=== PATIENT | female | born 1940 | race Caucasian/White ===

== ENCOUNTER → 2016-08-28 | Outpatient (CLI) | payer OTHER ==
--- NOTE | 2016-08-28 12:50 | MR ---
MRI of the Lumbar Spine (Without Contrast) Indication: Back pain. Age-indeterminate L1 compression fracture. Technique: Sagittal and axial T1 and T2 , and sagittal STIR MR sequences of the lumbar spine witho ut contrast. Comparison: Lumbar spine radiographs, August 25, 2016, and CT of the abdomen, October 17, 2013. Findings: A moderate (40% height loss) acute/subacute L1 compression fracture has hyperintense bone marrow edema on the T2 and STIR-weighted imaging and decreased signal at the site of the fracture dez ne on the T1-weighted sequence. A 5 mm posterior bulge of the superior posterior cortex results in m ild acquired central canal narrowing. The posterior bulge does not abut or deform the conus medullari s. No other compression fractures. Spinal canal is capacious. Conus medullaris resides at the L1-L2 leve l. No paraspinal hematoma or epidural collection. The left kidney is surgically absent. Benign-appear ing 1.9 x 1.0 cm cystic structure is present along the left lateral aspect of the L2-L3 disk on image 16 of the axial T2-weighted sequence. T11-T12: Normal disk. Widely patent central canal on sagittal imaging. T12-L1: Broad-based disk bulge and posterior bulge of the cortex result in mild central canal narrowi ng. Neural foramina are widely patent. L1-L2: Diffuse broad-based disk bulge combined with facet hypertrophy and ligamentum flavum thickenin g results in mild central canal narrowing and minimal bilateral neural foraminal narrowing. L2-L3: Diffuse broad-based disk bulge combined with facet hypertrophy and ligamentum flavum thickenin g results in mild central canal narrowing mild right neural foraminal narrowing and severe left neura l foraminal narrowing. L3-L4: The diffuse broad-based disk bulge combined with facet hypertrophy and ligamentum flavum thick ening results in mild central canal narrowing, bilateral ventrolateral recess narrowing, mild right a nd mild to moderate left neural foraminal narrowing. L4-L5: Diffuse broad-based disk bulge combined with facet hypertrophy and ligamentum flavum thickenin g results in mild central canal narrowing and mild bilateral neural foraminal narrowing. L5-S1: Disk desiccation and broad-based disk bulge with associated T2 hyperintense annular tear resul ts in no central canal narrowing and minimal bilateral neural foraminal narrowing. Impression: 1. Moderate acute/subacute L1 compression fracture with minimal posterior cortical bulge resulting in mild central canal narrowing. 2. No other acute fracture. 3. No acute disk herniation or significant central canal narrowing at any level. 4. Mild multilevel neural foraminal stenosis, worst on the left at L2-L3.
== END ==
LOC: FIMAGING 10:21
PROVIDERS: ATTEND Internal Medicine Geriatric Medicine
DX: M48.06 Spinal stenosis, lumbar region (principal); S32.000A Wedge compression fracture of unspecified lumbar vertebra, initial encounter for closed fracture; X58.XXXA Exposure to other specified factors, initial encounter

== ENCOUNTER 2017-08-25 05:41 | Inpatient (IN) | payer OTHER ==
--- NOTE | 2017-08-12 10:22 | GHP ---
[f rep st] PREOP HISTORY AND PHYSICAL DATE OF ADMISSION: She will be an a.m. admission for surgery at [facility] on Friday August 25, 2017. PROBLEM: Right hip arthritis. HISTORY OF PRESENT ILLNESS: The patient is a 76-year-old woman admitted for a right total hip arthroplasty. I did her left total hip arthroplasty in February of 2016. She has had an excellent result. For the past 4 to 6 months, her right hip has become more painful. She is having daily pain and night pain. It is painful to walk. She is admitted for a right total hip arthroplasty. PAST MEDICAL HISTORY: She had been treated for non-Hodgkin lymphoma in 2000. She underwent a stem cell transplant, as well as radiation therapy and chemotherapy. She believes she is currently disease-free. She had a bowel resection a couple years ago. She has a left renal ostomy. She is also treated for hypothyroidism. She has digestive issues. She is gluten intolerant. No history of heart disease, DVT, hepatitis, sleep apnea, or bleeding problems. CURRENT MEDICATIONS: Levothyroxine 75 mcg per day, Forteo 600 mcg per day. DRUG ALLERGIES: She was allergic to sulfa as a child. She does not remember the reaction. Metal allergy: None. Latex allergy: None. SOCIAL HISTORY: The patient is . She is retired. She does not smoke cigarettes and rarely drinks alcohol. PHYSICAL EXAMINATION: GENERAL: She is a thin, healthy-appearing woman. Height 5 feet 4 inches. Weight 100 pounds. BMI 17.2. EYES: The conjunctivae and sclerae are clear. Pupils are round and reactive. MOUTH: Good oral hygiene. No loose teeth. CHEST: Clear. HEART: Regular rhythm, no murmurs. EXTREMITIES: Pertinent findings are limited to her right hip. She has full hip extension and 90 degrees of flexion. External rotation 30 degrees. Internal rotation 0 degrees. Abduction 20 degrees. IMPRESSION ON ADMISSION: 1. Right hip severe degenerative arthritis. She is prepared for a right total hip arthroplasty. 2. Status post left total hip arthroplasty with an excellent result. 3. Treatment for non-Hodgkin lymphoma. 4. Treatment for hypothyroidism. 5. Left renal ostomy. 6. Status post bowel resection. 7. Treatment for osteoporosis. PLAN: She will undergo a right total hip arthroplasty. The surgery has been described to her, including the risks, complications, expectations, and recovery time. I have discussed with her the risk of dislocation, leg length inequality, infection, and sciatic nerve injury. Advised her with bilateral procedures there can be mild [id number] differences in the recovery and even in the final result. All her questions have been answered, and she consents to surgery. /[id number]/MODL MTDD
[2017-08-25] MEDS ORDERED: GABAPENTIN 300 MG CAP PO ONE (05:53)
[2017-08-25] MEDS ORDERED: ceFAZolin 2 GM/SWFI 2 GM/20 ML SYR IVP ONE (05:53)
[2017-08-25] MEDS ORDERED: ACETAMINOPHEN 325 MG TAB PO ONE (05:53)
[2017-08-25] MEDS ORDERED: FAMOTIDINE 20 MG TAB PO ONE (05:53)
[2017-08-25] MEDS ORDERED: DEXAMETHASONE 4 MG/ML VIAL IVP ONE (05:53)
[2017-08-25] MEDS ORDERED: LR 1,000 ML IV ONE (05:54)
[2017-08-25] MEDS ORDERED: LIDOCAINE 1% 2 ML INJ ID PRN (05:54)
[2017-08-25] MEDS ORDERED: TRANEXAMIC ACID 900 MG in NS 100 ML IV ONE (06:00)
[2017-08-25] MEDS ORDERED: POVIDONE-IODINE 20 ML in SODIUM CL IRRIG SOLUTION 500 ML IRR ONE (06:00)
[2017-08-25] MEDS ORDERED: ROPIVACAINE 0.2% 80 MG, EPINEPHrine 0.2 MG, KETOROLAC TROMETHAMINE 30 MG in SYRINGE 0 ML IU ONE (06:00)
[2017-08-25] MEDS ORDERED: ceFAZolin 1 GM/5 ML SYR ONE (06:44)
--- NOTE | 2017-08-25 06:54 | PDHPUP ---
History & Physical Update H&P update statement: This history and physical update is based on an assessment of the patient which was completed after admission or registration (within 24 hours), but prior to the surgery/procedure. H&P update: H&P reviewed & patient examined, no change in patient's condition since H&P completed
--- NOTE | 2017-08-25 06:56 | PDANEPAE ---
ANE History of Present Illness Hip OA ANE Past Medical History - Cardiovascular History Hx Hypertension: No Hx Arrhythmias: No Hx Chest Pain: No Hx Coronary Artery / Peripheral Vascular Disease: No Hx CHF / Valvular Disease: No Hx Palpitations: No - Pulmonary History Hx COPD: No Hx Asthma/Reactive Airway Disease: No Hx Recent Upper Respiratory Infection: No Hx Oxygen in Use at Home: No Hx Sleep Apnea: No Sleep Apnea Screening Result - Last Documented: Negative - Neurologic History Hx Cerebrovascular Accident: No Hx Seizures: No Hx Dementia: No Neurologic History Comment: NEUROPATHY LT LEG/FOOT - R/T LYMPHOMA - Endocrine History Hx Diabetes: No Endocrine History Comment: hypothyroidism - Renal History Hx Renal Disorders: No Renal History Comment: 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 nephrostomy takedown - Liver History Hx Hepatic Disorders: No - Neurological & Psychiatric Hx Hx Neurological and Psychiatric Disorders: No - Cancer History Hx Cancer: No Cancer History Comment: NON HODGKINS LYMPHOMA DX 2000 CHEMO, RADIATION, STEM CELL [place] - Congenital Disorder History Hx Congenital Disorders: No - GI History Hx Gastrointestinal Disorders: Yes Gastrointestinal History Comment: CHRONIC DIARRHEA. MALABSORPTION OF FATS. BOWEL RESECTION X 2 - Other Health History Other Health History: wears contact in left eye only - Chronic Pain History Chronic Pain: Yes (right hip) - Surgical History Prior Surgeries: 05/2016 left nephrectomy. 03/04/16 left SALINAS with [place]. BOWEL RESECTION 01/2015. LT NEPHROSTOMY 02/2015. BOWEL RESECTION 2002. LYMPHOMA , NEPHROSTOMY 2000. HYSTERECTOMY. CSECTION X 2 ANE Review of Systems Review of Systems: - Exercise capacity METS (RN): 4 METS ANE Patient History - Allergies Allergies/Adverse Reactions: gluten Allergy (Verified 08/05/17 11:48) gastrointestinal Milk Containing Products [dairy] Allergy (Verified 08/05/17 11:48) gastrointestinal Sulfa (Sulfonamide Antibiotics) Allergy (Verified 08/05/17 11:48) UNSURE WHAT REACTION HAPPENS, HASN'T HAD SINCE A CHILD - Home Medications Home medications: home medication list seen and reviewed Home Medications: Cholecalciferol Vit D3 [Vitamin D3 (*)] 3,000 units PO DAILY 01/23/16 [Last Taken 08/24/17] Herbals/Supplements -Info Only 1 ea PO DAILY #0 01/23/16 [Last Taken 08/24/17 19 :00] Levothyroxine [Synthroid 75 mcg (*)] 37.5 mcg PO DAILY06 01/23/16 [Last Taken 08:00] Multivitamins [Multivitamin (*)] 1 each PO DAILY 01/23/16 [Last Taken 08/18/17] Carboxymethylcellulose 1% [Refresh Celluvisc (*)] 1 drop EACHEYE DAILY PRN 07/29 [Last Taken 08/23/17] Teriparatide [Forteo] 2.4 ml SQ DAILY 07/29/17 [Last Taken 08/24/17 21:00] - NPO status NPO Since - Liquids (Date): 08/24/17 NPO Since - Liquids (Time): 20:00 NPO Since - Solids (Date): 08/24/17 NPO Since - Solids (Time): 19:00 - Anes Hx Anes Hx: no prior problems (Diff coming out of anesthesia for couple days with one surgery) - Smoking Hx Smoking Status: Former smoker - Family Anes Hx Family Hx Anesthesia Complications: none ANE Labs/Vital Signs - Vital Signs Blood Pressure: 175/97 Heart Rate: 74 Respiratory Rate: 16 O2 Sat (%): 97 Height: 167.64 cm Weight: 45.359 kg ANE Physical Exam - Airway Neck exam: FROM Mallampati Score: Class 1 Mouth exam: normal dental/mouth exam - Pulmonary Pulmonary: no respiratory distress - Cardiovascular Cardiovascular: regular rate and rhythym - ASA Status ASA Status: II ANE Anesthesia Plan Anesthesia Plan: MAC, spinal
[2017-08-25] MEDS ORDERED: MIDAZOLAM 2 MG/2 ML VIAL ONE (07:03)
[2017-08-25] MEDS ORDERED: PROPOFOL/EMULSION 500 MG/50 ML BOTTLE IV ONE (07:07)
[2017-08-25] MEDS ORDERED: MIDAZOLAM 2 MG/2 ML VIAL IVP ONE (07:48)
[2017-08-25] MEDS ORDERED: PHENYLEPHRINE HCL 100 MCG/ML SYR ONE (07:53)
[2017-08-25] MEDS ORDERED: fentaNYL 100 MCG/2 ML INJ IVP PRN (08:26)
[2017-08-25] MEDS ORDERED: HYDROmorphONE/DILAUDID 1 MG/ML INJ IVP PRN (08:26)
[2017-08-25] MEDS ORDERED: ONDANSETRON 4 MG/2 ML VIAL IVP PRN ×2 (08:26→08:50)
[2017-08-25] MEDS ORDERED: NALOXONE HCL 0.4 MG/ML INJ IVP PRN (08:26)
--- NOTE | 2017-08-25 08:34 | POSTOPPROG ---
Post Op Note Date of Operation: 08/25/17 Surgeon: Luis Eduardo Silva Ophthalmic Surgeon: Trina Anesthesiologist: Jacy Anesthesia: IV Sedation, Spinal Post-op Diagnosis: right hip arthritis Procedure: right SALINAS Inf/Abcess present in the surg proc area at time of surgery?: No EBL: 100-500
[2017-08-25] MEDS ORDERED: PROMETHAZINE HCL 25 MG/ML INJ IVP PRN (08:50)
[2017-08-25] MEDS ORDERED: POLYETHYLENE GLYCOL 3350 17 GM PKT PO PRN (08:50)
[2017-08-25] MEDS ORDERED: NS 500 ML IV PRN (08:50)
[2017-08-25] MEDS ORDERED: PROMETHAZINE HCL 25 MG SUPPR PR PRN (08:50)
[2017-08-25] MEDS ORDERED: CYCLOBENZAPRINE 10 MG TAB PO PRN (08:50)
[2017-08-25] MEDS ORDERED: BISACODYL 10 MG SUPP PR PRN (08:50)
[2017-08-25] MEDS ORDERED: ONDANSETRON DISINTEGRATING 4 MG TAB PO PRN (08:50)
[2017-08-25] MEDS ORDERED: MAGNESIUM HYDROXIDE 30 ML UDCUP PO PRN (08:50)
[2017-08-25] MEDS ORDERED: CARBOXYMETHYLCELLULOSE 1% 0.4 ML DROPERETTE EACHEYE PRN (08:50)
[2017-08-25] MEDS ORDERED: KETOROLAC 30 MG/1 ML SDV IVP PRN (08:50)
[2017-08-25] MEDS ORDERED: diphenhydrAMINE 25 MG CAP PO PRN (08:50)
[2017-08-25] MEDS ORDERED: DIPHENOXYLATE/ATROPINE LOMOTIL 1 TAB PO PRN (08:50)
[2017-08-25] MEDS ORDERED: TEMAZEPAM 15 MG CAP PO PRN (08:50)
[2017-08-25] MEDS ORDERED: METOCLOPRAMIDE 10 MG/2 ML VIAL IVP PRN (08:50)
[2017-08-25] MEDS ORDERED: traMADol 50 MG TAB PO PRN (08:50)
[2017-08-25] MEDS ORDERED: LACTULOSE 20 GM/30 ML UDCUP PO PRN (08:50)
--- NOTE | 2017-08-25 08:56 | POSTANESTH ---
Post Anesthetic Evaluation Cardiovascular Status: Normal, Stable Respiratory Status: Normal, Stable Level of Consciousness/Mental Status: Alert and Oriented, Mildly Sleepy, Arousable Pain Control: Adequate, Prn Tx Ordered Nausea/Vomiting Control: Adequate, Prn Tx Ordered Complications Possibly Related to Anesthesia: None Noted
[2017-08-25] MEDS ORDERED: LR 1,000 ML IV SCH (09:00)
--- NOTE | 2017-08-25 09:34 | GOP ---
[f rep st] OPERATIVE REPORT DATE OF OPERATION: 08/25/2017 SURGEON: Luis Eduardo Silva MD CLINICAL PROGRAM DIRECTOR: DARLIN Chacko CFA. ANESTHESIA: A combination of Marcaine, spinal, and IV sedation. ANESTHESIOLOGIST: Mat Louie MD. PREOPERATIVE DIAGNOSIS: Right hip severe degenerative arthritis. POSTOPERATIVE DIAGNOSIS: Right hip severe degenerative arthritis. PROCEDURE PERFORMED: FINDINGS: DESCRIPTION OF PROCEDURE: The patient was given 2 g of IV Ancef preoperatively within 60 minutes of surgery. She also received IV tranexamic acid at a dose of 20 mg/kg. She was placed on the operatin g room table and given spinal anesthesia with Marcaine by Dr. Louie. She was then placed supi ne and given IV sedation. A Sagastume catheter was not used. She wore a MAX stocking and SCD on the non operative leg. She was rolled to the left lateral decubitus position. The position was secured with the pegboard table attachment. An axillary roll was used, and all pressure points were carefully pa dded. I was careful to lock her pelvis in a vertical position. Her perineum was isolated with plast ic adhesive drapes. The right hip and right lower extremity were prepped with ChloraPrep. They were draped free using sterile sheets, stockinette, and Ioban plastic drapes. The [employer] time-out was performed to verify the correct surgical side and the [facility] patient identity. The [place] time-out was also performed. I made a 4 to 5-inch straight oblique posterolateral hip skin incision. Subcutaneous tissues were sh arply divided, and hemostasis was obtained using electrocautery. The fascia cesar was identified and split along the axis of its fibers. I curved posteriorly and proximally, and split the fascia of the gluteus laura and bluntly split the muscle fibers in line with their orientation. The [place] se lf-retaining retractor was inserted. Her sciatic nerve was located, partially exposed, and protected throughout the procedure. The external rotators and the posterior hip capsule were divided as separ ate layers at the base of the femoral neck, tagged, and reflected posteriorly. A smooth 8-inch Matute laguerre pin was inserted vertically into the ilium, superior to the acetabulum. A 1/8-inch drill bit wa s inserted vertically into the greater trochanter and parallel to the first pin. The distance betwee n the two was measured for leg length reference. Her femoral head was dislocated posteriorly. She h ad severe degenerative changes in the femoral head and neck region. Her femoral neck was osteotomize d at the appropriate level and inclination. I was careful to preserve all her capsule. The remnant of her damaged labrum was excised. I prepared the femur first. This allowed me to bottle assembler the amount of natural femoral neck anteversion. This, in turn, allowed me to later determine the correct amount of cup anteversion. She had approx imately 10 or 12 degrees of natural femoral neck anteversion. Her canal was opened laterally with a box chisel. I reamed and hand broached sequentially up to a size 4. I used the [place] Accolade 2 s ize 4 broach as a trial stem. I was careful to lateralize adequately. Appropriate retractors were inserted to expose the acetabulum. The acetabulum was reamed sequentiall y up to 51 mm. I selected a 52 mm [place] Tritanium cluster hole hemispherical shell. This was kee ed securely into place in a proper degree of inclination and anteversion. I used the transverse acet abular ligament and other acetabular bony landmarks to help me properly orient the cup. Because of h er osteoporosis, I inserted 25 mm and 30 mm supplemental fixation screws. I also inserted a screw an d metal dome hole plug. Moderately large anterior acetabular osteophytes were removed with an osteot ome and rongeur. I performed a series of trial reductions to determine length and stability. I concluded that the siz e 4 stem with standard offset and a -4 mm neck length, a 32 mm head with a 10 degree lipped liner gav e me the proper combination of appropriate length and good anterior and posterior stability. The 10-degree lip [place] X3 highly cross-linked polyethylene cup liner was inserted and tapped secur nitin into place. The [place] Accolade 2 stem and size 4 in standard offset was inserted press-fit and was very tight. I did one final trial reduction and confirmed that the -4 mm neck length with a 32 mm head was the proper combination. The [place] Biolox Delta ceramic head with an outside diameter o f 32 mm and a neck length of -4 mm was tapped securely onto the clean trunnion. She was a few millim eters short preoperatively, and I was intentionally lengthening her a slight amount. The acetabulum was irrigated, cleaned and the hip was reduced one final time. She had excellent anterior and hand bookbinder ior stability. 40 mL of the joint anesthetic cocktail were injected into the capsule, the deep musculature, and the subcutaneous tissues around the skin edges. The joint was thoroughly irrigated one final time with otto villa. The patient had an allergy to Betadine and I did not use Betadine solution. Her sciatic nerv e was reinspected and looked unharmed. The external rotators and the posterior hip capsule were repaired in separate layers with #2 FiberWir e sutures through drill holes in the greater trochanter. This provided a strong posterior capsular a nd external rotator repair. The fascia cesar was closed first with two #2 [id number] FiberWire s utures, followed by a running #2 barbed Ethicon Stratafix PDO suture. The subcutaneous tissues were closed with a running 0 barbed Ethicon Stratafix Monoderm suture. The skin was closed with a running 3-0 barbed Ethicon Stratafix Monoderm subcuticular suture. The skin edges were reapproximated and s ealed with Dermabond glue. The wound was covered with a large piece of waterproof Mediplex surgical dressing. A long-leg MAX stocking and SCD were applied to her right lower extremity. She wore a stocking and S CD on the opposite leg during the procedure. An abduction pillow was placed between her knees. She was awakened from anesthesia and rolled to the supine position on her [facility]. She was taken to the PACU in satisfactory condition. There were no recognized intraoperative complications. The estimated blood loss was about 200 mL. The sponge and needle count were correct on 2 occasions. I used a [place] Tritanium hemispherical cluster hole acetabular shell with an outside diameter of 52 mm. The liner was a [place] X3 10-degree lipped highly cross-linked liner with an inside diameter o f 32 mm. The lip was dialed so that it was directly posterior. The femoral component was a Press-Fi t Kay[place] Accolade 2 stem in a size 4. The femoral head was a [place] Biolox Delta ceramic head with a -4 mm neck length and a 32 mm outside diameter. Fabio Hayden and Ramses John acted as surgical assistants. Their assistance was a medical necess ity for safe completion of the procedure. PROCEDURE PERFORMED: Right total hip arthroplasty, ceramic femoral head on a highly cross-linked david yethylene cup liner. /[id number]/MODL
[2017-08-25] MEDS ORDERED: ACETAMINOPHEN 325 MG TAB ONE (12:05)
[2017-08-25] MEDS: ACETAMINOPHEN 325 MG TAB PO SCH ×2 (12:09→17:30)
[2017-08-25] MEDS: oxyCODONE IR 5 MG TAB PO PRN ×3 (12:10→21:05)
[2017-08-25] MEDS: SENNOSIDES/DOCUSATE SODIUM TAB PO SCH ×3 (15:39→21:03)
[2017-08-25] MEDS: Teriparatide [Forteo] 2.4 ML SQ SCH (15:40)
[2017-08-25] MEDS: TRANEXAMIC ACID 650 MG TAB PO SCH (15:56)
[2017-08-25] MEDS: ceFAZolin 2 GM/DEXTROSE 100 ML IV SCH ×2 (15:57→20:58)
[2017-08-25] MEDS: FAMOTIDINE 20 MG TAB PO SCH (20:57)
[2017-08-25] MEDS: ASPIRIN 325 MG TAB PO SCH (21:05)
[2017-08-26] MEDS: ACETAMINOPHEN 325 MG TAB PO SCH ×2 (01:12→06:05)
[2017-08-26] MEDS: TRANEXAMIC ACID 650 MG TAB PO SCH ×2 (01:13→06:07)
[2017-08-26] MEDS: oxyCODONE IR 5 MG TAB PO PRN ×2 (04:02→09:00)
[2017-08-26] MEDS ORDERED: LEVOTHYROXINE 75 MCG TAB PO SCH (06:00)
--- NOTE | 2017-08-26 07:07 | SOAPPROG ---
SOAP Progress Note Assessment/Plan: Assessment: Afebrile. Awake and alert. She has been up and walking. Sciatic nerve intact. Her dressing is dry. Postop H&H are satisfactory. Postop films look excellent. Plan: Physical therapy today. Discharged later today. 08/26/17 07:06 Objective: Vital Signs Temp Pulse Resp BP Pulse Ox 36.6 C 75 18 151/95 H 99 08/26/17 03:54 08/26/17 03:54 08/26/17 03:54 08/26/17 03:54 08/26/17 03:54 Laboratory Results 08/26/17 04:20 08/25/17 08/26/17 08/27/17 05:59 05:59 05:59 Intake Total 1300 Output Total 350 Balance 950 ICD10 Worksheet Patient Problems: Problems Problem Status Onset Osteoarthritis of right hip Acute Osteoarthritis of left hip Acute
[2017-08-26 07:31] VITALS: BP 119/70; PULSE 65; RESP 16; TEMP 97.9; O2SAT 96
--- NOTE | 2017-08-26 07:47 | GDS ---
[f rep st] DISCHARGE SUMMARY ADMISSION DIAGNOSIS: Right hip severe degenerative arthritis. DISCHARGE DIAGNOSIS: Right hip severe degenerative arthritis. OPERATION PERFORMED: 08/25/2017 right total hip arthroplasty. POSTOPERATIVE COMPLICATIONS: None. CONDITION ON DISCHARGE: Improved. DESCRIPTION OF HOSPITAL COURSE: The patient was admitted to the hospital on the morning of surgery. Her admission hemoglobin and hematocrit were 10.9 and 33.8. The same day, under a combination of Ma rcaine, spinal, and IV sedation, she underwent a right total hip arthroplasty. Postoperatively, she was treated with multimodal DVT prophylaxis, including aspirin and early mobilization. On the first postoperative day, her hemoglobin and hematocrit were 9.4 and 29.4. She was seen by Physical Therapy and made good progress with ambulation and stairs. By the time of discharge she was afebrile, her w ound was clean and dry, and she was independent walking with a walker. DISPOSITION: Patient is discharged to her home. She will go to outpatient physical therapy. She ma y progress to full weightbearing on the right as tolerated. Continue aspirin 325 mg p.o. daily for 2 1 days. Use an abduction pillow in bed for 3 weeks. She has prescriptions for oxycodone and tramado l. I will see her back in the office on September 13, 2017. If there are any problems, she is to call me at the office. /[id number]/MODL
[2017-08-26] MEDS: SENNOSIDES/DOCUSATE SODIUM TAB PO SCH (09:00)
[2017-08-26] MEDS: FAMOTIDINE 20 MG TAB PO SCH (09:00)
[2017-08-26] MEDS: ASPIRIN 325 MG TAB PO SCH (09:00)
[2017-08-26] MEDS: Teriparatide [Forteo] 2.4 ML SQ SCH (10:39)
--- NOTE | 2017-08-26 10:49 | ASDISCHSUM ---
Discharge Information Plan Status:Home with No Needs Medically Cleared to Leave: Discharge Date: CM D/C Disposition:Home, Routine, Self-Care ADT D/C Disposition:Home, Routine, Self-Care Projected Discharge Date: Transportation at D/C: Discharge Delay Reason: Follow-Up Date: Discharge Slot: Final Diagnosis: Placement Information Patient Contact Information Contact Name:DEMETRICE Relationship: Address:[address] City:[place] Alternate Phone: State/Zip Code:[place] [address] Email: Financial Information Financial Class:Medicare Advantage Plans Primary Plan Desc:[employer]ARE ADVANTAGE Primary Plan Number:[id number] Secondary Plan Desc: Secondary Plan Number: Assessment Information CM Progress Worker Assessment CM Note CM Note Notes: Fadi is planning to discharge home with the support of her . She has signed up for outpatient physical therapy at the [facility] starting 1 week post-surgery. Fadi had her other hip replaced one year ago and is well prepared for this surgery. Fadi scored a 10 on the RAPT scale, meaning she should discharge directly home. Date Signed: 08/17/2017 12:26 PM Electronically Signed By:Fariha Morgan [facility] CM Progress Note CM Note CM Note Notes: Pt medically stable for d/c, no CM d/c needs identified. Date Signed: 08/26/2017 10:48 AM Electronically Signed By:GIANLUCA Eldridge Intervention Information
== END 2017-08-26 10:45 | disposition home or self-care (01) | DRG 470 ==
LOC: F3N 05:41
PROVIDERS: ADMIT Orthopaedic Surgery; ATTEND Orthopaedic Surgery
PROC: 0SR904Z Replacement of Right Hip Joint with Ceramic on Polyethylene Synthetic Substitute, Open Approach (ICD-10-PCS; principal; 2017-08-25 07:15)
DX: M16.11 Unilateral primary osteoarthritis, right hip (principal); Z96.642 Presence of left artificial hip joint; C85.90 Non-Hodgkin lymphoma, unspecified, unspecified site; E03.9 Hypothyroidism, unspecified; M81.0 Age-related osteoporosis without current pathological fracture; Z92.3 Personal history of irradiation
CPT/HCPCS: 97116-GP; 97161-GP; 97165-GO; C1713; G8987-GO-CI; G8988-GO-CI; G8989-GO-CI; J0171; J0690; J1100; J1885; J2250; J2370; J2704; J2795